=== PATIENT | male | born 1970 | race Caucasian/White ===

== ENCOUNTER 2024-03-12 06:19 | Emergency (ER) | payer OTHER ==
[~2024-03-12] VITALS: Ht 177.8 cm
[2024-03-12] MEDS ORDERED: ACETAMINOPHEN 325 MG TAB PO ONE (08:20)
[2024-03-12] MEDS ORDERED: IBUPROFEN 400 MG TAB PO ONE (08:20)
[2024-03-12] MEDS ORDERED: IBUPROFEN 600 MG TAB PO ONE (08:35)
== END 2024-03-12 08:25 | disposition home or self-care (01) ==
LOC: ED 06:19
DX: S53.401A Unspecified sprain of right elbow, initial encounter (principal); Z88.1 Allergy status to other antibiotic agents; Z88.6 Allergy status to analgesic agent; Z88.5 Allergy status to narcotic agent; Z88.8 Allergy status to other drugs, medicaments and biological substances; X50.0XXA Overexertion from strenuous movement or load, initial encounter; Y93.89 Activity, other specified; Y92.89 Other specified places as the place of occurrence of the external cause; Y99.0 Civilian activity done for income or pay

== ENCOUNTER → 2024-04-02 | Outpatient (CLI) | payer OTHER | END | disposition home or self-care (01) | LOC: MRI 01:27 | PROVIDERS: ATTEND Orthopaedic Surgery | DX: S46.211A Strain of muscle, fascia and tendon of other parts of biceps, right arm, initial encounter (principal); M77.11 Lateral epicondylitis, right elbow; R60.0 Localized edema; X58.XXXA Exposure to other specified factors, initial encounter; Y93.89 Activity, other specified; Y92.89 Other specified places as the place of occurrence of the external cause; Y99.8 Other external cause status ==